=== PATIENT | female | born 1945 | race Caucasian/White ===

== ENCOUNTER 2018-05-30 06:32 | Day surgery (SDC) | payer OTHER, BC ==
--- OUTSIDE RECORDS SUMMARY | 2018-05-30 06:34 | XMS REPORT ---
:1945 Author Organization [employer] Care Team Providers Name Role Phone Inna Ramos Provider Role Unavailable Allergies No Known Allergies Problems Problem Type Condition Code Onset Dates Condition Status Problem Elevated BP without diagnosis of R03.0 Active hypertension Problem Chest tightness R07.89 Active Problem Blood pressure elevated without R03.0 Active history of HTN Problem Insomnia G47.00 Active Problem Thyroid nodule E04.1 Active Problem Hyperlipidemia E78.5 Active Problem Personal history of malignant Z85.828 Active neoplasm of skin Problem Goiter E04.9 Active Problem Osteopenia M85.80 Active Problem Obstructive sleep apnea G47.33 Active Problem Depression with anxiety F41.8 Active Problem CPAP (continuous positive airway Z99.89 Active pressure) dependence Problem Hyperlipidemia, unspecified E78.5 Active hyperlipidemia type Problem Insomnia, unspecified type G47.00 Active Medications No Known Medications Results No Known Results Summary Purpose [employer]ClinicalWorks Submission
--- OUTSIDE RECORDS SUMMARY | 2018-05-30 06:34 | XMS REPORT ---
:1945 Author Organization [employer] Care Team Providers Name Role Phone Rachel Inna Provider Role Unavailable Allergies, Adverse Reactions, Alerts Substance Reaction Event Type N.K.D.A. Info Not Available Non Drug Allergy Problems Problem Type Condition Code Onset Dates Condition Status Problem Elevated BP without diagnosis of R03.0 Active hypertension Problem Chest tightness R07.89 Active Problem Blood pressure elevated without R03.0 Active history of HTN Problem Insomnia G47.00 Active Assessment Depression with anxiety F41.8 Active Problem Thyroid nodule E04.1 Active Problem Hyperlipidemia E78.5 Active Problem Personal history of malignant Z85.828 Active neoplasm of skin Problem Goiter E04.9 Active Problem Osteopenia M85.80 Active Problem Obstructive sleep apnea G47.33 Active Assessment Elevated BP without diagnosis of R03.0 Active hypertension Assessment CPAP (continuous positive airway Z99.89 Active pressure) dependence Assessment Insomnia, unspecified type G47.00 Active Assessment Thyroid nodule E04.1 Active Problem Depression with anxiety F41.8 Active Problem CPAP (continuous positive airway Z99.89 Active pressure) dependence Assessment Obstructive sleep apnea G47.33 Active Problem Hyperlipidemia, unspecified E78.5 Active hyperlipidemia type Assessment Hyperlipidemia, unspecified E78.5 Active hyperlipidemia type Problem Insomnia, unspecified type G47.00 Active Medications Medication Code Code Instructions Start End Status Dosage System Date Date Multivitamin [facility] 78793377485 - Orally Active not Adults defined Crestor [facility] 38173484441 20 MG Orally Active 1 tablet Once a day [place] 3 [facility] 47892467580 1000 MG Orally Active 1 capsule Once a day Vistaril [facility] 44584608751 25 MG Orally Active 1 capsule every 8 hrs as needed ClomiPRAMINE HCl [facility] 11989204840 25 MG Orally Active 1 capsule Once a day Aspirin Low Dose [facility] 21866970048 81 MG Orally Active 1 tablet Once a day B Complex [facility] 72957131457 - Orally Active not defined Vitamin D3 [facility] 23495464245 2000 UNIT Active 1 capsule Orally Once a day Vitamin C [facility] 15519957671 1000 MG Orally Active 1 tablet Once a day Rosuvastatin [facility] 22580975571 20 mg Orally Active 1 tablet Calcium Once a day Results No Known Results Summary Purpose eClinicalWorks Submission
--- OUTSIDE RECORDS SUMMARY | 2018-05-30 06:34 | XMS REPORT ---
[...] unspecified type G47.00 Active Medications Medication Code System Code Instructions Start Date End Date Status Dosage Crestor [facility] 85174370555 20 mg Orally Once August 07, Active 1 tablet a day 2018 Results No Known Results Summary Purpose [employer] Submission
--- OUTSIDE RECORDS SUMMARY | 2018-05-30 06:35 | XMS REPORT ---
:1945 Author Organization [employer]ClinicalWorks Care Team Providers Name Role Phone Inna Ramos Provider Role Unavailable Allergies, Adverse Reactions, Alerts Substance Reaction Event Type N.K.D.A. Info Not Available Non Drug Allergy Problems Problem Type Condition Code Onset Dates Condition Status Problem Hyperlipidemia, unspecified E78.5 Active hyperlipidemia type Problem Goiter E04.9 Active Problem Chest tightness R07.89 Active Problem Abnormal renal function test R94.4 Active Assessment Elevated BP without diagnosis of R03.0 Active hypertension Problem Osteopenia M85.80 Active Assessment Insomnia G47.00 Active Problem Eosinophilia D72.1 Active Problem Obstructive sleep apnea G47.33 Active Problem Personal history of malignant Z85.828 Active neoplasm of skin Problem Insomnia G47.00 Active Problem Thyroid nodule E04.1 Active Assessment Eosinophilia D72.1 Active Assessment Abnormal renal function test R94.4 Active Assessment CPAP (continuous positive airway Z99.89 Active pressure) dependence Assessment Obstructive sleep apnea G47.33 Active Problem Depression with anxiety F41.8 Active Problem Insomnia, unspecified type G47.00 Active Assessment Hyperlipidemia, unspecified E78.5 Active hyperlipidemia type Problem Elevated BP without diagnosis of R03.0 Active hypertension Problem CPAP (continuous positive airway Z99.89 Active pressure) dependence Medications Medication Code Code Instructions Start End Status Dosage System Date Date B Complex [facility] 33678783131 - Orally Active not defined [place] 3 [facility] 45191574347 1000 MG Orally Active 1 capsule Once a day Aspirin Low Dose ND 90862617605 81 MG Orally Active 1 tablet Once a day Crestor [facility] 80017985522 20 MG Orally Active 1 tablet Once a day Vistaril ND 10562123990 25 MG Orally Active 1 capsule every 8 hrs as needed Vitamin C ND 08596811956 1000 MG Orally Active 1 tablet Once a day Crestor [facility] 12978538918 20 mg Orally August 07, Active 1 tablet Once a day 2017 ClomiPRAMINE HCl ND 59002950710 25 MG Orally Active 1 capsule Once a day Rosuvastatin [facility] 61581196606 20 mg Orally Active 1 tablet Calcium Once a day in evening Multivitamin [facility] 28871980028 - Orally Active not Adults defined Vitamin D3 [facility] 24450637047 2000 UNIT Active 1 capsule Orally Once a day Results No Known Results Summary Purpose eClinicalWorks Submission
[2018-05-30] MEDS ORDERED: Ringers Lactate 1,000 ML IV ONE (06:51)
[2018-05-30] MEDS ORDERED: NA CHLORIDE 0.9% 1,000 ML ONE (07:14)
[2018-05-30] MEDS ORDERED: LIDOCAINE 1.5% W/EPI AMP 5 ML ONE (07:14)
[2018-05-30] MEDS ORDERED: PROPOFOL 200 MG/20 ML VIAL IV ONE (07:26)
[2018-05-30] MEDS ORDERED: FENTANYL CITR 100 MCG/2 ML ONE (07:27)
[2018-05-30] MEDS ORDERED: MIDAZOLAM HCL 2 MG/2 ML INJ ONE (07:27)
[2018-05-30] MEDS ORDERED: LIDOCAINE 2% MPF 5 ML VIAL ONE (07:27)
[2018-05-30] MEDS ORDERED: IBUPROFEN 400 MG TAB ONE (09:00)
[2018-05-30] MEDS ORDERED: IBUPROFEN 200 MG TAB PO ONE (09:00)
--- NOTE | 2018-05-30 19:34 | OP ---
Date of Procedure: 05/30/2018 Surgeon: Vivi Henderson MD Preoperative Diagnosis: Postmenopausal bleeding. Postoperative Diagnosis: Postmenopausal bleeding. Procedures Performed: Hysteroscopy, endometrial curettage. Anesthesia: General with LMA. Specimens: Endometrial curettings. Complications: No complications. Drains: No drains. Condition: Stable. Findings: Endometrial cavity empty. Calcifications in the fundal part of the endometrium, both tuba l ostia were visualized. Cervical canal extremely stenotic. However, it was navigated through with the tip of the camera under direct visualization into the uterine cavity without any problems. Indications: The patient is a 73-year-old with postmenopausal bleeding. She was evaluated with armenta svaginal ultrasound. There was a 3.4 mm thickness on the endometrial stripe. However, given the fac t that the bleeding was even though episodic the first ever in 20 years and fairly confident was vagi nal, decided to perform a hysteroscopy to visualize the cavity and make sure that there was no pathol ogy. She was consented and brought to the OR. Description Of Procedure: After informed consent was verified, she was taken back to the OR. General anesthesia was given through the laryngeal mask. The patient was placed in a dorsal lithotomy posit ion. Using Constantine stirrups pelvic exam performed. Uterus small, cervix stenotic, even the external o s had to be opened up with the tip of the hemostat. After prep x3 with Betadine was done, anterior l ip was grasped with a single-tooth tenaculum. External os opened up with the help of tip of a hemost at. A diagnostic SlimLine hysteroscope was introduced into the cervical canal and normal saline for distention medium, 30-degree lens. Direct hysteroscopy was performed traversing the cervical canal a nd through the stenotic os into the uterine cavity. Once cavity was entered, there were calcificatio ns and findings as above. The scope was pulled out. Endometrial curette #2 was placed after dilatin g the cervical canal to 16-Hungarian and curettings were performed. The specimen I consider is scant, w hich is consistent with the findings. These were handed out for permanent pathology. All the instru ments were removed. Instrument, needle, and sponge counts were done and were correct at the end of t he case. The patient tolerated the procedure well. She was recovered from general anesthesia in the OR and taken to PACU in stable condition. Estimated Blood Loss: Minimal. She will follow up with me in 1 week, she has an appointment. The plan is to observe the patient. N o need for any further intervention after the endometrial pathology is negative for atypia or maligna ncy. MARCOS Voice ID: [id number] Report ID: [id number]
== END 2018-05-30 09:35 | disposition home or self-care (01) ==
LOC: OR 06:32
PROVIDERS: ATTEND Obstetrics & Gynecology
PROC: 0UJD8ZZ Inspection of Uterus and Cervix, Via Natural or Artificial Opening Endoscopic (ICD-10-PCS; 2018-05-30)
PROC: 0UDB7ZX Extraction of Endometrium, Via Natural or Artificial Opening, Diagnostic (ICD-10-PCS; principal; 2018-05-30 07:30)
DX: N95.0 Postmenopausal bleeding (principal); E78.5 Hyperlipidemia, unspecified; F33.1 Major depressive disorder, recurrent, moderate; Z85.820 Personal history of malignant melanoma of skin
CPT/HCPCS: 88305; 58558; J2704; J2250; J3010; J2001; J7030